=== PATIENT | male | born 1980 | race Caucasian/White ===

== ENCOUNTER → 2022-06-02 | Outpatient (CLI) | payer BC ==
--- NOTE | 2022-06-02 07:31 | US ---
EXAMINATION TYPE: US venous doppler duplex LE RT DATE OF EXAM: 06/02/2022 7:20 AM COMPARISON: NONE CLINICAL INDICATION: Male, 41 years old with history of [id number] LEG PAIN; Pt states right leg pain SIDE PERFORMED: Right TECHNIQUE: The lower extremity deep venous system is examined utilizing real time linear array sonog lauro with graded compression, doppler sonography and color-flow sonography. VESSELS IMAGED: Common Femoral Vein Deep Femoral Vein Greater Saphenous Vein * Femoral Vein Popliteal Vein Small Saphenous Vein * Proximal Calf Veins (* superficial vessels) Right Leg: Negative for DVT IMPRESSION: 1. Right lower extremity negative for deep venous process
--- NOTE | 2022-06-05 08:26 | MR ---
EXAMINATION TYPE: MR tib fib RT wo con DATE OF EXAM: 06/02/2022 COMPARISON: NONE HISTORY: 41-year-old male M79.661, right lower leg pain for 5 years. TECHNIQUE: Multiplanar, multisequence images of the right tibia/fibula were obtained without IV contr ast. Coronal and axial images of the contralateral side for comparison purposes. FINDINGS: Markers are noted indicating an 11 cm long segment along the posterolateral aspect of the mid right l eg. Note asymmetric prominent varicose veins along the mid to distal third aspect of the right lower extr emity. However, underlying the area delineated by the palpable markers, no solid or cystic lesion is identif ied. Mild subcutaneous soft tissue swelling is present circumferentially in this region. No muscle ed nat or edema along the deeper fascial planes. No acute or healing fracture or bone marrow replacement IMPRESSION: 1. A couple skin markers indicating an 11 cm long region of the posterolateral mid right leg. There i s some mild subcutaneous soft tissue swelling circumferentially in this region. Additionally, there a re prominent varicose veins noted along the mid to distal third aspect of the right leg, asymmetric t o the contralateral side. 2. No other specific abnormality is identified of the deeper soft tissue or bony structures.
== END | disposition home or self-care (01) ==
LOC: RADMRIMAIN 06:00
PROVIDERS: ATTEND Family Medicine
DX: M79.661 Pain in right lower leg (principal); M79.89 Other specified soft tissue disorders